=== PATIENT | male | born 1970 | race Caucasian/White ===

== ENCOUNTER 2019-06-18 08:02 | Day surgery (SDC) | payer MEDICARE ==
[~2019-06-18 08:02] MED LIST: Lactated Ringers 1,000 ML IV SCH; Sodium Chloride 0.9% 10 ML Syringe FLUSH PRN
[2019-06-18] MEDS ORDERED: Propofol 200 MG/20 ML SDV IV ONE (08:03)
[2019-06-18] MEDS ORDERED: Glycopyrrolate 0.2 MG/ML 5 ML MDV IV ONE (08:03)
[2019-06-18] MEDS: Lactated Ringers 1,000 ML IV SCH (08:43)
--- NOTE | 2019-06-18 09:35 | PCM.OPNOTE ---
- General Post-Op/Procedure Note Date of Surgery/Procedure: 06/18/19 Operative Procedure(s): c scope with bx Findings: nl appearing ileum, colon ileocolic anastomosis. Pre Op Diagnosis: hx of Crohn's disease. hx of resection Post-Op Diagnosis: nl appearing ileum, colon. ileocolic anastomosis. Anest[place] [facility] [place]geon: Eric Daniel Anesthesia Provider: Tania Frederick Pathology: random colon and terminal ileum biopsies. Complications: None Condition: Good Free Text/Narrative:: see dictation
--- NOTE | 2019-06-18 11:39 | OR ---
DATE OF OPERATION: 06/18/2019 SURGEON: Eric Daniel MD PROCEDURE PERFORMED: Colonoscopy with cold forceps biopsy. PREOPERATIVE DIAGNOSIS: Personal history of Crohn disease and intestinal resection. POSTOPERATIVE DIAGNOSIS: Normal-appearing terminal ileum and colon. INDICATIONS FOR PROCEDURE: Mr. Patterson is a 49-year-old white male who has had a history of an intestinal resection involving the terminal ileum, ascending colon in the past. He has been under fairly good control, did have an exacerbation of his Crohn disease last summer. This was because he stopped taking sulfasalazine. He has not had a recent surveillance colonoscopy because of his inflammatory bowel disease and it was recommended that he undergo one at the current time. He was offered and accepted this procedure. DESCRIPTION OF OPERATION: After an excellent IV sedation was administered, the digital rectal exam was performed. No marked abnormality was noted. The flexible colonoscope was inserted and advanced to the cecum or the ascending colon and the following findings were noted: In the ascending colon, there was an ileocolic anastomosis in the right lower quadrant that was essentially palpated externally to over McBurney's point. There was normal appearing mucosa. The terminal ileum was intubated and the scope was advanced, some random biopsies and photo were taken. Ascending colon was unremarkable. Random biopsies were taken every 10 cm. Transverse colon, unremarkable, random biopsies taken every 10 cm. Descending colon, unremarkable, random biopsies were taken every 10 cm. Sigmoid, there was a single diverticulum noted. Random biopsies were taken roughly every 10 cm, and the rectum itself was unremarkable and random biopsies were taken every 10 cm as well. The patient tolerated the procedure well, was taken to recovery in good condition. Results by letter. /[id number] /MODL
== END 2019-06-18 10:31 | disposition home or self-care (01) ==
LOC: FB.SDS 08:02
PROVIDERS: ATTEND Surgery
DX: Z12.11 Encounter for screening for malignant neoplasm of colon (principal); K52.9 Noninfective gastroenteritis and colitis, unspecified; J30.1 Allergic rhinitis due to pollen; F79 Unspecified intellectual disabilities; Z87.19 Personal history of other diseases of the digestive system; Z90.49 Acquired absence of other specified parts of digestive tract; Z79.899 Other long term (current) drug therapy
CPT/HCPCS: 00811; 45380; 88305; J2704; J3490; J7120